=== PATIENT | male | born 1965 | race Caucasian/White ===

== ENCOUNTER 2020-07-15 12:42 | Outpatient (CLI) | payer OTHER, SELFPAY ==
--- NOTE | ~2020-07-15 | CT_ITS ---
EXAMINATION: CT abdomen pelvis wo/w con DATE: 07/15/2020 13:21 INDICATION: Microscopic hematuria TECHNIQUE: Computed tomography (CT) of the abdomen and pelvis was performed without intravenous contr ast. CT of the abdomen and pelvis was then performed with a total of 130 mL Omnipaque-350 intravenous contrast using a double-bolus technique for simultaneous opacification of the renal parenchyma and r enal collecting system Automated exposure control and iterative reconstruction technique were employe d. The dose-length product was 1715.67 mGy-cm. COMPARISON: None FINDINGS: Minimal atelectasis at the lingula and right middle lobe. Heart size is normal. No pericardial or ple ural effusion. Liver, gallbladder, spleen, pancreas and bilateral adrenal glands are normal. Bowels i ncluding the appendix are normal. Kidneys and ureters are normal with no urolithiasis, hydroureterone phrosis or perinephric/ureteral stranding. Bilateral ureters are opacified in their entirety with no urothelial irregularities. Bladder is normal. Mild prostatomegaly. No free intraperitoneal gas or flu id. No pathologically enlarged abdominal or pelvic lymphadenopathy. Mild scattered degenerative skele josie changes. IMPRESSION: 1. Normal kidneys and ureters with no urolithiasis, renal parenchymal lesions, urothelial irregularit ies or other etiology identified for reported microscopic hematuria. Reviewed, dictated and finalized at location A. IMPRESSION: 1. Normal kidneys and ureters with no urolithiasis, renal parenchymal lesions, urothelial irregularities or other etiology identified for reported microscopic hematuria.
== END 2020-07-15 12:43 | disposition home or self-care (01) ==
DX: R31.29 Other microscopic hematuria (principal)
CPT/HCPCS: 74178; Q9967

== ENCOUNTER 2023-01-06 08:36 | Outpatient (CLI) | payer OTHER, SELFPAY ==
--- NOTE | ~2023-01-06 | MR_ITS ---
MRI of the chest CLINICAL HISTORY: Left pectoral muscle strain TECHNIQUE: Axial T1-weighted and T2 fat-sat images, coronal T1-weighted and STIR images, and sagittal T1-weighted and STIR images were acquired. FINDINGS: There is a somewhat linear/irregular grade 2 tear of the left pectoralis major muscle belly , with irregular STIR hyperintense signal in this region (series 4 images 242). No complete rupture muscle belly identified. The distal tendon is intact. Remaining visualized musculature about the left chest is otherwise unremarkable. Visualized osseous s tructures are grossly unremarkable. No soft tissue mass evident. IMPRESSION: Grade 2 injury of the left pectoralis muscle belly, as detailed above. Tendon of the pectoralis muscl e is intact. Reviewed, dictated and finalized at location M. IMPRESSION: Grade 2 injury of the left pectoralis muscle belly, as detailed above. Tendon o f the pectoralis muscle is intact.
--- NOTE | ~2023-01-06 | MR_ITS ---
EXAMINATION: MR shoulder LT wo con DATE: 01/06/2023 10:51 INDICATION: STRAIN OF LEFT PECTORAL MUSCLE, LEFT SHOULDER PAIN . TECHNIQUE: Magnetic resonance imaging (MRI) of the left shoulder was performed without intravenous co ntrast. Sequences included axial PD-weighted FS FSE, coronal oblique PD-weighted FS FSE and T2-weight ed FS FSE, and sagittal oblique T2-weighted FS FSE and T1-weighted FSE. COMPARISON: None. FINDINGS: Coracoacromial arch: Mild anterolateral downsloping of the type II acromion. No subacromial or subcoracoid narrowing. Rotator cuff: Thickening and abnormal signal within the distal supraspinatus tendon. Thickening and longitudinally oriented signal abnormality in the subscapularis. The infraspinatus and teres minor are intact. Biceps tendon and glenoid labrum: The long head of biceps tendon is intact. Linear tear in the posterior inferior labrum. Fluid: Moderate subacromial subdeltoid fluid. No significant glenohumeral fluid. Bones/cartilage: Mild AC joint hypertrophy. Mild cartilage thinning in the glenohumeral compartment. IMPRESSION: Severe supraspinatus tendinopathy. Partial tear of the subscapularis. Moderate subacromial subdeltoid bursitis. Focal tear in the posteroinferior labrum. Reviewed, dictated and finalized at location K.
== END 2023-01-06 08:37 | disposition home or self-care (01) ==
DX: S29.011A Strain of muscle and tendon of front wall of thorax, initial encounter (principal); S43.432A Superior glenoid labrum lesion of left shoulder, initial encounter; M75.52 Bursitis of left shoulder; M77.8 Other enthesopathies, not elsewhere classified
CPT/HCPCS: 71550; 73221

== ENCOUNTER 2024-03-31 09:46 | Emergency (ER) | payer OTHER, SELFPAY ==
[2024-03-31 10:10] VITALS: BP 144/89; PULSE 60; RESP 18; TEMP 36.6; O2SAT 100
--- NOTE | 2024-03-31 10:23 | ED_ITS ---
HPI - URI/Sore Throat General Chief Complaint: Upper Respiratory Infection Stated Complaint: ear popping, congestion Time Seen by Provider: 03/31/24 10:23 Source: patient, RN notes reviewed and old records reviewed Mode of arrival: ambulatory Limitations: no limitations History of Present Illness HPI Narrative: patient presents with complaints chest congestion and cough. He reports that about a month ago he began with symptoms of sinus pain and congestion. He has been taking [id number] medications to try to manage this. Over the past week or 2, he has noticed increasingly productive cough as well as some wheezing. He states that cough is sometimes painful, typically worse at night. Says that he is more tired than normal, has had some chills and sweats over the past week. He continues to take [id number] medication, says that they are not working very well. Related Data Home Medications ?Medication ?Instructions ?Recorded ?Confirmed ?Last Taken ?Type atenolol 25 mg tablet 02/20/19 Unknown History amlodipine 5 mg tablet mg 03/31/24 Unknown History Allergies Allergy/AdvReac Type Severity Reaction Status Date / Time morphine AdvReac Mild Other Verified 03/31/24 10:31 Review of Systems Review of Systems: All systems reviewed & are unremarkable except as noted in HPI and below Constitutional: Constitutional: Reports no additional constitutional compl aints, Reports chills, Reports lethargy and Reports night sweats ENT: Reports system reviewed and no additional complaints, except as documented, Reports nasal congestion, Reports nasal discharge, Reports sinus pain and Reports sinus pressure Cardiovascular: Cardiovascular: Reports no additional cardiovascular comp laints Respiratory: Respiratory: Reports no additional respiratory complaints, Reports change in phlegm color, Reports chest congestion, Reports cough and Reports excessive phlegm production Gastrointestinal: Gastrointestinal: Reports no additional gastrointestinal complaints PMFSH Comments At the time of my signature, I reviewed and agree with the nursing past medical, surgical, social, and family history. There is no relevant family history pertinent to the patient complaint. Exam Const: General: cooperative, no acute distress, alert and awake Orientation/consciousness: oriented to person, oriented to place and oriented to time HENMT: Head: normal to inspection Mouth: Yes moist mucous membranes Throat: posterior oropharynx abnormal erythema Resp: Effort & Inspection: normal respiratory effort and able to speak in complete sentences Auscultation: clear to auscultation bilaterally, crackles on the right at the base, no rales, no rhonchi and no wheezes Cardio: Palpation: normal PMI Rate: regular rate Rhythm: regular rhythm Heart sounds: S1 normal heart sound present and S2 normal heart sound present Neuro: General: oriented to person, oriented to place and oriented to time Cranial nerves: Yes CN's II-XII intact bilaterally Psych: Appearance: grossly normal Thought process: Normal thought process present Insight: Good insight present (Psych) Judgement: Good judgement present (Psych) Course Course Level of Care: Express Care Visit Vital Signs Vital signs: Vital Signs Temperature 97.8 F 03/31/24 10:10 Pulse Rate 60 03/31/24 10:10 Respiratory Rate 18 03/31/24 10:10 Blood Pressure 144/89 H 03/31/24 10:10 Pulse Oximetry 100 03/31/24 10:10 Oxygen Delivery Room Air 03/31/24 10:10 Temperature 97.8 F 03/31/24 10:10 Pulse Rate 60 03/31/24 10:10 Respiratory Rate 18 03/31/24 10:10 Blood Pressure 144/89 H 03/31/24 10:10 Pulse Oximetry 100 03/31/24 10:10 Oxygen Delivery Room Air 03/31/24 10:10 Reviewed MDM - URI/Sore Throat MDM Narrative Medical decision making narrative: History and exam consistent with atypical pneumonia. Patient nontoxic appearing, stable for discharge home with p.o. antibiotic therapy. Discharge instructions reviewed with patient, as well as provided in writing per nursing staff. The instructions also include specific and strict return/GO TO THE ER as well as f/u information. All questions have been answered, and the patient deny any further questions with discharge and discharge plan. Some parts of this dictation were generated by voice recognition software and may contain typographical and/or grammatical inaccuracies. Differential Diagnosis Differential diagnosis: Likely upper respiratory infection, viral infection, bronchitis and influenza Medical Records Attestation: I reviewed the patient's medical records. Discharge Plan Discharge Clinical Impression: Atypical pneumonia Patient Disposition: Home, Self-Care Condition: Stable Instructions: Antibiotic Form, Community Acquired Pneumonia (ED) Additional Instructions: Take medications as prescribed. Follow-up with primary care provider. Emergency department for new or worse symptoms Patient Language: Palestinian Prescriptions: New azithromycin 250 mg tablet See Rx Instructions .ROUTE .COMPLEX Qty: 6 0RF Rx Instructions: For 250 mg dose pack: take 500 mg today (day 1), then 250 mg for 4 days (days 2-5) prednisone 50 mg tablet 50 mg PO DAILY Qty: 5 0RF albuterol sulfate [Ventolin HFA] 90 mcg/actuation HFA aerosol inhaler 2 puff inhalation QID PRN (Reason: shortness of breath or wheezing) Qty: 8.5 0RF No Action atenolol 25 mg tablet amlodipine 5 mg tablet Follow-up/Referrals: [facility], [Primary Care Provider] - Stand Alone Forms: Work/School Release IP Time of Disposition: 10:33
== END 2024-03-31 10:38 | disposition home or self-care (01) ==
PROVIDERS: Emergency Provider Nurse Practitioner Family
DX: J18.9 Pneumonia, unspecified organism (principal); I10 Essential (primary) hypertension
CPT/HCPCS: 99213; G0463